=== PATIENT | female | born 1935 | race Caucasian/White ===

== ENCOUNTER 2021-11-04 16:49 | Emergency (ER) | payer MEDICARE, OTHER ==
[2021-11-04 19:34] LABS: BASOPHIL 0.2 % (0-2); EOSINOPHIL 0 % (0-7); HCT 25.8 % (37.0-47.0); HGB 8.3 g/dl (12.5-16.0); LYMPHOCYTE 3.3 % (15-48); MCH 31.1 pg (25.0-31.0); MCHC 32.2 g/dL (32.0-36.0); MCV 96.6 fL (78.0-100.0); MONOCYTE 0.7 % (0-12); MPV 9.5 fL (6.0-9.5); NRBC 0; PLT 247 K/uL (150-400); RBC 2.67 M/uL (4.20-5.40); RDW 12.9 % (11.5-14.0)
[2021-11-04 19:54] LABS: NEUTROPHIL 95.1 % (41-80)
[2021-11-04 19:58] LABS: ALBUMIN 2.4 g/dL (3.4-5.0); BILIRUBIN - TOTAL 0.6 mg/dL (0.2-1.0); BUN/CREAT RATIO (CALC) 14.3 RATIO; CREATININE 4.69 mg/dL (0.51-0.95); GLOBULIN (CALCULATION) 4.3 g/dL; POTASSIUM 4.2 mmol/L (3.5-5.1); TOTAL PROTEIN 6.7 g/dL (6.4-8.2)
[2021-11-04 20:13] LABS: CORONAVIRUS 2019 SARS-COV-2 NEGATIVE (NEGATIVE); INFLUENZA A NAA NEGATIVE (NEGATIVE)
[2021-11-04 21:16] LABS: BILIRUBIN NEGATIVE (NEGATIVE); BLOOD 3+ Ery/uL (NEGATIVE); CLARITY CLEAR (CLEAR); COLOR YELLOW (YELLOW); GLUCOSE (U) NORMAL (NORMAL); LEUKOCYTES 1+ Leu/uL (NEGATIVE); NITRITE NEGATIVE (NEGATIVE); PROTEIN 2+ mg/dL (NEGATIVE); UROBILINOGEN 0.2 mg/dL (0.2-1.0)
[2021-11-04 21:19] LABS: AMORPHOUS URATES CRYSTALS TRACE; BACTERIA 2+
== END 2021-11-05 02:52 | disposition other institution (70) ==
LOC: FER 16:49
PROVIDERS: Internal Medicine
DX: G93.40 Encephalopathy, unspecified (principal); J18.9 Pneumonia, unspecified organism; K62.89 Other specified diseases of anus and rectum; N17.9 Acute kidney failure, unspecified; I12.9 Hypertensive chronic kidney disease with stage 1 through stage 4 chronic kidney disease, or unspecified chronic kidney disease; N18.9 Chronic kidney disease, unspecified; D63.1 Anemia in chronic kidney disease; Z20.822 Contact with and (suspected) exposure to COVID-19; Z79.899 Other long term (current) drug therapy
CPT/HCPCS: 36415; 70450; 71045; 80053; 81001; 83605; 83880; 84145; 84484; 85025; 87040; 93005; J2543; J7040; U0002